=== PATIENT | female | born 1940 | race Caucasian/White ===

== ENCOUNTER → 2024-06-09 13:59 | Outpatient (REF) | payer OTHER, SELFPAY ==
[2024-06-09 14:56] LABS: Urine Albumin Negative (Neg - Trace); Urine Bilirubin Negative (Negative); Urine Character Clear (Clear); Urine Color Yellow; Urine Glucose Negative (Negative); Urine Ketone Negative (Negative); Urine Leukocyte Negative (Negative); Urine Nitrite Negative (Negative); Urine Occult Blood Negative (Negative); Urine Specific Gravity 1.005 (<1.030); Urine Urobilinogen Negative (Neg - 1+)
== END ==
LOC: REG 13:59
PROVIDERS: ATTENDING PHYSICIAN Physician Assistant; FAMILY PHYSICIAN Family Medicine
DX: N30.20 Other chronic cystitis without hematuria (principal)
CPT/HCPCS: 81003; 87086

== ENCOUNTER 2024-06-26 15:00 | Inpatient (IN) | payer OTHER, SELFPAY ==
[2024-06-05 11:25] LABS: Hematocrit 42.2 % (37.0-47.0); Hemoglobin 13.4 g/dL (12.0-16.0); Mean Corp Hgb Conc. 31.8 g/dL (33.0-37.0); Mean Corpuscular Hgb 28.9 pg (27.0-31.0); Mean Corpuscular Volume 90.9 fL (81.0-99.0); Platelet Count 271 10^3/uL (130-400); Red Blood Cell Count 4.64 10^6/uL (4.20-5.40); Red Cell Dist. Width 12.7 % (11.5-14.5); White Blood Cell Count 7.8 10^3/uL (4.8-10.8)
[2024-06-05 11:25] LABS: Urine Albumin Negative (Neg - Trace); Urine Bilirubin Negative (Negative); Urine Character Clear (Clear); Urine Color Yellow; Urine Glucose Negative (Negative); Urine Ketone Negative (Negative); Urine Leukocyte 2+ (Negative); Urine Nitrite Negative (Negative); Urine Occult Blood Negative (Negative); Urine Urobilinogen Negative (Neg - 1+)
[2024-06-05 11:41] LABS: Urine Bacteria Few (Negative); Urine Red Blood Cell 0-2 /HPF (0-2)
[2024-06-05 13:40] LABS: Glycohemoglobin (HgbA1c) 6.1 % (4.0-5.6)
[2024-06-05 13:51] LABS: ALT (SGPT) 20 U/L (0-35); AST (SGOT) 25 U/L (14-36); Albumin 4.7 g/dl (3.5-5.0); Alkaline Phosphatase 58 U/L (38-126); Blood Urea Nitrogen 19 mg/dl (7-17); Calcium 9.8 mg/dl (8.4-10.2); Carbon Dioxide 27 mmol/L (22-30); Chloride 106 mmol/L (98-107); Glucose 88 mg/dl (70-99); Potassium 4.5 mmol/L (3.5-5.1); Sodium 144 mmol/L (135-145); Total Bilirubin 1.2 mg/dl (0.2-1.3); eGFR > 60.00
[2024-06-05 14:20] VITALS: BMI 28.3
[2024-06-13 12:02] VITALS: BMI 28.3
--- NOTE | 2024-06-22 11:26 | VNURNOTE ---
Chart reviewed, noted pt scheduled for SDS/PSR. Per HP, pt to start outpt PT Weds after surgery. Noted per video software engineer, Pepper Montoya, no VN needs.
[2024-06-26] VITALS (16 sets, daily range): BP systolic 104–142; BP diastolic 65–88; PULSE 81; O2SAT 95
--- NOTE | 2024-06-26 07:09 | W.DS.TRANS ---
Addendum entered and electronically signed by Sania Mcfarland PA-C 06/27/24 08:00:
Cefadroxil ppx 500mg bid w/probiotic Rx provied for infection prevention given hx Urosepss
Original Note:
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
-
Discharge Instructions:
Discharge Diagnosis/Procedures L TKA 06/26/24
Diet Low Sodium
Activity With Walker
Driving Restrictions No driving
Bathing Restrictions OK to Shower
Other Services PT
Instructions:
Stand-Alone Forms: Total Hip/Knee Replacement D/C
Changes to Home Medications: Yes
Discharge Medications:
DC Medications w/original date entered in [employer]
amlodipine 5 mg tablet 2.5 mg PO QPM 01/21/17
diphenhydramine HCl 25 mg capsule (Banophen) 50 mg PO HS insomnia 01/21/17
irbesartan 150 mg tablet 150 mg PO HS 01/21/17
methenamine hippurate 1 gram tablet 1 g PO BID 01/21/17
atorvastatin 10 mg tablet 10 mg PO QPM 06/02/24
bupropion HCl 150 mg tablet,12 hr sustained-release (Wellbutrin SR) 150 mg PO DAILY 06/02/24
denosumab 60 mg/mL subcutaneous syringe (Prolia) 60 mg SC [id number] 06/02/24
desmopressin 0.1 mg tablet (DDAVP) 0.05 mg PO BID 06/02/24
esomeprazole magnesium 40 mg capsule,delayed release (Nexium) 40 mg PO DAILY 06/02/24
estradiol 0.01% (0.1 mg/gram) vaginal cream 1 g vaginal DIRECTED 06/02/24
melatonin 5 mg capsule 5 mg PO HS 06/02/24
triamcinolone acetonide 0.1 % topical cream 1 applic topical PRN PRN ITCHING 06/02/24
mupirocin 2 % topical ointment 1 applic intranasal BID #1 tube 06/05/24
acetaminophen 325 mg tablet (Tylenol) 650 mg (2 x 325 mg) PO QID #1 tab 06/26/24
aspirin 325 mg tablet 325 mg PO DAILY blood clot prevention #1 tab 06/26/24
celecoxib 200 mg capsule 200 mg PO DAILY Anti-inflammatory #14 caps 06/26/24
docusate sodium 100 mg capsule (Colace) 100 mg PO BID stool softner #1 cap 06/26/24
gabapentin 300 mg capsule 300 mg PO HS sleep/pain #10 caps 06/26/24
magnesium hydroxide 400 mg/5 mL oral suspension (Milk of Magnesia) 30 ml PO HS PRN Constipation #1 mL 06/26/24
ondansetron 4 mg disintegrating tablet 4 mg PO Q6H PRN n/v #20 tabs 06/26/24
oxycodone 5 mg tablet 5 mg PO Q6H PRN 1 tab moderate pain, 2 tabs severe pain #30 tabs 06/26/24
sennosides 8.6 mg tablet (Senokot) 17.2 mg (2 x 8.6 mg) PO BID laxative #2 tabs 06/26/24
Home Medication Changes
mupirocin 2 % topical ointment 1 applic intranasal BID #1 tube 06/05/24
acetaminophen 325 mg tablet (Tylenol) 650 mg (2 x 325 mg) PO QID #1 tab 06/26/24
aspirin 325 mg tablet 325 mg PO DAILY blood clot prevention #1 tab 06/26/24
celecoxib 200 mg capsule 200 mg PO DAILY Anti-inflammatory #14 caps 06/26/24
docusate sodium 100 mg capsule (Colace) 100 mg PO BID stool softner #1 cap 06/26/24
gabapentin 300 mg capsule 300 mg PO HS sleep/pain #10 caps 06/26/24
magnesium hydroxide 400 mg/5 mL oral suspension (Milk of Magnesia) 30 ml PO HS PRN Constipation #1 mL 06/26/24
ondansetron 4 mg disintegrating tablet 4 mg PO Q6H PRN n/v #20 tabs 06/26/24
oxycodone 5 mg tablet 5 mg PO Q6H PRN 1 tab moderate pain, 2 tabs severe pain #30 tabs 04/14/25
sennosides 8.6 mg tablet (Senokot) 17.2 mg (2 x 8.6 mg) PO BID laxative #2 tabs 06/26/24
Pending Results: No
[2024-06-26] MEDS: D5/0.45%NACL 1000 IV ×2 (07:10→13:44)
[2024-06-26] MEDS: CELEBREX 200 MG PO (07:10)
[2024-06-26] MEDS: TYLENOL 650 MG PO ×5 (07:10→22:59)
[2024-06-26 08:03] LABS: Sodium 137 mmol/L (135-145)
--- NOTE | 2024-06-26 08:24 | W.PN.UPDATE ---
Update Note
Progress Note Update
L TKA 06/26/24
DVT ppx ASA
Hx p/o hypotension
Diabetes insipidus
-low salt/protein
-D5 1/2 NSS IVF
-Midodrine
-no Toradol
[2024-06-26 10:21] LABS: Glucose - Point of Care 161 mg/dl (70-99)
[2024-06-26 11:36] LABS: Sodium 135 mmol/L (135-145)
[2024-06-26] MEDS: DILAUDID 0.25 MG IV ×3 (12:17→13:47)
[2024-06-26] MEDS: ROXICODONE 5 MG PO ×3 (13:23→22:59)
--- NOTE | 2024-06-26 14:50 | PTCARENOTE ---
Received patient from PACU around 1430 via bed in stable condition. Left knee dressing CDI. + movement + sensation to LLE. Patient oriented to room. Call cooney in reach.
[2024-06-26] MEDS: DDAVP PO (15:12)
[2024-06-26] MEDS: WELLBUTRIN SR (12 hour sustained release) 150 MG PO (15:16)
[2024-06-26] MEDS: PROTONIX 40 MG PO (15:16)
[2024-06-26] MEDS: ANCEF 5 IV ×2 (15:17→23:00)
[2024-06-26] MEDS: ProAmatine PO (15:22)
[2024-06-26] MEDS: DDAVP 0.05 MG PO (17:17)
[2024-06-26] MEDS: ASPIRIN 325 MG PO (17:17)
[2024-06-26] MEDS: ProAmatine 5 MG PO (17:19)
[2024-06-26] MEDS: LIPITOR 10 MG PO (17:19)
[2024-06-26 18:03] LABS: Sodium 130 mmol/L (135-145)
--- NOTE | 2024-06-26 18:54 | W.PN.UPDATE ---
Update Note
Progress Note Update
This patient has diabetes insipidus managed by Dr. Zahira Sykes at of the [facility]. She saw the patient preoperatively and I just spoke with her regarding postoperative management. This patient's sodium was 137 at 7 AM today,
135 at 11 AM today and 130 at 6 PM today. Based upon these findings and my discussion with Dr. Sykes we are stopping IVF and restricting her free water for the rest of the day. She is then to restrict her water to 800 mL on June 27. In the
morning, at 6 AM, she will undergo a laboratory draw which includes electrolytes and urine osmolality. The results of these tests are to be discussed with Dr. Sykes by cell phone. Also, patient is to be put on a 4-hour neurochecks. If there is
any change in mental status, a stat sodium is to be drawn. Tomorrow's desmopressin dose should be administered at 11:00 and 23:00.
[2024-06-26] MEDS: SENOKOT 17.2 MG PO (20:17)
[2024-06-26] MEDS: BACTROBAN 2% OINTMENT 1 APPLIC NASAL (20:18)
[2024-06-26] MEDS: COLACE 100 MG PO (20:18)
[2024-06-26] MEDS: NEURONTIN PO ×2 (22:18→22:22)
[2024-06-26] MEDS: MELATONIN 5 MG PO (22:18)
[2024-06-26] MEDS: BENADRYL PO (22:22)
[2024-06-27] VITALS (9 sets, daily range): BP systolic 102–140; BP diastolic 56–75; PULSE 65–79; O2SAT 95–96
[2024-06-27] MEDS: TYLENOL PO (05:00)
[2024-06-27] MEDS: ROXICODONE 5 MG PO ×3 (05:35→17:24)
--- NOTE | 2024-06-27 07:43 | CM ---
Addendum entered by Porsha Corrales RN 06/27/24 08:43:
CM met with patient in room. Patient confirmed demographics. Patient does not have a history of VN, SNF. Patient is active with PCP. Patient uses [facility] for medication services. Patient is scheduled for outpatient PT with [facility] and is scheduled
for 06/28.
Plan: Home with Outpatient PT services.
Original Note:
Cm reviewed medical records. CM reviewed PT notes and recommendation for outpatient PT. CM will continue to follow as needed.
[2024-06-27] MEDS: WELLBUTRIN SR (12 hour sustained release) 150 MG PO (08:04)
[2024-06-27] MEDS: PROTONIX 40 MG PO (08:04)
[2024-06-27] MEDS: SENOKOT 17.2 MG PO ×2 (08:04→19:52)
[2024-06-27] MEDS: ProAmatine 5 MG PO ×3 (08:04→17:21)
[2024-06-27] MEDS: HIPREX 1 GRAM PO ×2 (08:05→13:28)
[2024-06-27] MEDS: TYLENOL 650 MG PO ×5 (08:05→22:59)
[2024-06-27] MEDS: ASPIRIN 325 MG PO (08:05)
[2024-06-27] MEDS: COLACE 100 MG PO ×2 (08:05→19:52)
[2024-06-27] MEDS: BACTROBAN 2% OINTMENT 1 APPLIC NASAL ×2 (08:06→19:54)
[2024-06-27 08:10] LABS: Blood Urea Nitrogen 16 mg/dl (7-17); Calcium 8.5 mg/dl (8.4-10.2); Carbon Dioxide 22 mmol/L (22-30); Chloride 98 mmol/L (98-107); Estimated Creatinine Clearance 53 ml/min; Glucose 129 mg/dl (70-99); Potassium 4.9 mmol/L (3.5-5.1); Sodium 130 mmol/L (135-145); eGFR > 60.00
[2024-06-27] MEDS: ZOFRAN 4 MG IV ×2 (09:09→16:25)
--- NOTE | 2024-06-27 10:26 | W.PN.ORTHO ---
Today's Communication / Plan
-
d/c only when stable
Assessment
.
Distal Motor Intact: Yes
Dressing:
Clean, dry and intact.
Assessment:
Hx p/o hypotension-Midodrine w/ parameter-BP stable
Diabetes insipidus
-low salt/protein
-D5 1/2 NSS IVF-d/c following OR
-Toradol held
-fluid restriction
-Ddavp 2 hours from home dosing after void
-awaiting urine osmolality
-no indication of symptomatic hyponatremia thus far
Urinary retention post-op requiring straight cath 600ml PVR-will avoid additional straight cath if possible due to risk of infection and hx of urosepsis-PVR 100 this am, has yet to void-awaiting urine studies
Plan
.
Surgery / Date: L TKA 06/26/24
DVT Prophylaxis: Aspirin
Activity:
Out of bed.
PT/OT
Discharge Plan: Home
Subjective
.
.:
Patient resting comfortably.
Vital Signs and Labs
.
Vital Signs and Labs:
Lab Results
06/05/24 10:20
Temp Pulse Resp BP Pulse Ox
98.0 F 73 16 110/67 94
06/27/24 06:58 06/27/24 08:04 06/27/24 06:58 06/27/24 08:04 06/27/24 06:58
Non-invasive Hgb result: 11.6
Physical Exam
-
HEENT: No pallor, cyanosis, or jaundice. Throat clear.
NECK: Supple. No JVD.
RESPIRATORY: Lungs clear to auscultation.
CVS: S1, S2 normal. RRR.� No murmur, rub or gallop.
ABDOMEN: Soft, non-tender. No distension. BS+/normal.
EXTREMITIES: strength equal, no calf pain with palpation
SBA UNDERWRITER: AOx3. No focal deficits. geospatial technologist grossly intact
[2024-06-27 13:06] LABS: Sodium 129 mmol/L (135-145)
--- NOTE | 2024-06-27 13:27 | W.PN.UPDATE ---
Update Note
Progress Note Update
repeat sodium 129-spoke to bottling room worker Dr. Zahira Sykes. Once patient can urinate, sodium will correct, and she may have Ddavp--we will repeat sodium prior to d/c and BMP slip provided for outpatient lab
[2024-06-27] MEDS: CELEBREX 200 MG PO (14:21)
[2024-06-27] MEDS: NEURONTIN 300 MG PO ×2 (14:21→22:56)
[2024-06-27 15:21] LABS: Osmolality Urine 628 mOsm/kg (300-900)
[2024-06-27 15:31] LABS: Urine Sodium 11 mmol/L (30-90)
[2024-06-27] MEDS: FLOMAX 0.4 MG PO (16:15)
[2024-06-27] MEDS: LIPITOR 10 MG PO (17:24)
[2024-06-27 18:34] LABS: Sodium 127 mmol/L (135-145)
--- NOTE | 2024-06-27 19:28 | W.PN.UPDATE ---
Update Note
Progress Note Update
spoke to Dr. Sykes Endorinologist [facility] re Diabetes Insipidus:
Patient is now hyponatremic with element of hypovolemia based on urine sodium, osmolality and output
500ml NSS bolus over 1 hour
Encourage oral intake but continue 1L fluid restriction
Ddavp NOT TO BE DOSED BASED ON SODIUM LEVEL EVEN IF NORMALIZES--unless---
Classic indicator of exacerbation will be extreme thirst--when this occurs,AND patient voids 500ml within 2hours,Ddavp may be dosed--irregardless of sodium level.
[2024-06-27] MEDS: NSS 250 IV (19:53)
[2024-06-27] MEDS: DDAVP PO (19:55)
[2024-06-27] MEDS: MELATONIN 5 MG PO (22:56)
[2024-06-27] MEDS: BENADRYL 50 MG PO (22:56)
--- NOTE | 2024-06-27 23:20 | PTCARENOTE ---
Patient urinated 275 in past two hours. VALERIE Arambula made aware. No new orders at this time.
[2024-06-28] MEDS: ROXICODONE 5 MG PO ×2 (00:40→08:17)
[2024-06-28] MEDS: TYLENOL PO (04:49)
[2024-06-28 07:10] VITALS: BP 106/67
[2024-06-28 07:32] LABS: Blood Urea Nitrogen 17 mg/dl (7-17); Chloride 98 mmol/L (98-107); Potassium 4.5 mmol/L (3.5-5.1); Sodium 131 mmol/L (135-145)
[2024-06-28 07:48] LABS: Carbon Dioxide 23 mmol/L (22-30); Estimated Creatinine Clearance 47 ml/min; Glucose 103 mg/dl (70-99); eGFR > 60.00
[2024-06-28] MEDS: CELEBREX 200 MG PO (08:17)
[2024-06-28] MEDS: HIPREX 1 GRAM PO ×2 (08:18→12:20)
[2024-06-28] MEDS: WELLBUTRIN SR (12 hour sustained release) 150 MG PO (08:18)
[2024-06-28] MEDS: SENOKOT 17.2 MG PO (08:18)
[2024-06-28] MEDS: PROTONIX 40 MG PO (08:18)
[2024-06-28] MEDS: ASPIRIN 325 MG PO (08:19)
[2024-06-28] MEDS: ProAmatine 5 MG PO (08:19)
[2024-06-28] MEDS: TYLENOL 650 MG PO ×2 (08:19→12:20)
[2024-06-28] MEDS: COLACE 100 MG PO (08:19)
[2024-06-28] MEDS: FLOMAX 0.4 MG PO (08:19)
[2024-06-28] MEDS: ProAmatine PO (08:21)
--- NOTE | 2024-06-28 08:23 | CM ---
CM reviewed medical records. CM pending medical clearance for discharge. CM will continue to follow.
PLAN: Home with Outpatient PT.
--- NOTE | 2024-06-28 10:45 | W.PN.ORTHO ---
Today's Communication / Plan
-
d/c
Assessment
.
Distal Motor Intact: Yes
Dressing:
Clean, dry and intact.
Assessment:
spoke to Dr. Sykes Endorinologist [facility] Diabetes Insipidus:
*Patient became hyponatremic with element of hypovolemia based on urine sodium, osmolality and output
s/p 500ml NSS bolus over 1 hour 06/27/24
*1L fluid restriction continued
*Ddavp held despite sodium level due to criteria:
classic indicator of exacerbation- extreme thirst--and patient able to void 500ml within 2hours
-Today POD#2-patient voiding >500ml over 2 hours and has some thirst-Na+ level improved at 131--OK to dose Desmopressin per Endocrine-BMP in am outpatient
Hypotension-Midodrine dosed-no orthostasis
Urinary retention-resolved with Flomax
Plan
.
Surgery / Date: L TKA 06/26/24
DVT Prophylaxis: Aspirin
Activity:
Out of bed.
PT/OT
Discharge Plan: Home w/ Outpatient PT
Subjective
.
.:
Patient resting comfortably.
Vital Signs and Labs
.
Vital Signs and Labs:
Lab Results
06/05/24 10:20
06/28/24 05:30
Temp Pulse Resp BP Pulse Ox
97.5 F 75 16 106/67 97
06/28/24 07:10 06/28/24 07:10 06/28/24 07:10 06/28/24 08:19 06/28/24 07:10
Non-invasive Hgb result: 10.6
Physical Exam
-
HEENT: No pallor, cyanosis, or jaundice. Throat clear.
NECK: Supple. No JVD.
RESPIRATORY: Lungs clear to auscultation.
CVS: S1, S2 normal. RRR.� No murmur, rub or gallop.
ABDOMEN: Soft, non-tender. No distension. BS+/normal.
EXTREMITIES: strength equal, no calf pain with palpation
NEWSPAPER EDITOR MANAGING: AOx3. No focal deficits. senior fire protection engineer grossly intact
[2024-06-28] MEDS: DDAVP 0.05 MG PO (10:46)
[2024-06-28 12:20] VITALS: BP 108/79
--- NOTE | 2024-06-29 12:33 | W.DS.TRANS ---
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
-
Discharge Instructions:
Discharge Diagnosis/Procedures L TKA 06/26/24
Diet Low Sodium,Restrict fluids to 48 oz
Activity With Walker
Driving Restrictions No driving
Bathing Restrictions OK to Shower
Blood Work BMP
Other Services PT
Instructions:
Stand-Alone Forms: Total Hip/Knee Replacement D/C
Changes to Home Medications: Yes
Discharge Medications:
DC Medications w/original date entered in [employer]
amlodipine 5 mg tablet 2.5 mg PO QPM 01/21/17
diphenhydramine HCl 25 mg capsule (Banophen) 50 mg PO HS insomnia 01/21/17
irbesartan 150 mg tablet 150 mg PO HS 01/21/17
methenamine hippurate 1 gram tablet 1 g PO BID 01/21/17
atorvastatin 10 mg tablet 10 mg PO QPM 06/02/24
bupropion HCl 150 mg tablet,12 hr sustained-release (Wellbutrin SR) 150 mg PO DAILY 06/02/24
denosumab 60 mg/mL subcutaneous syringe (Prolia) 60 mg SC [id number] 06/02/24
desmopressin 0.1 mg tablet (DDAVP) 0.05 mg PO BID 06/02/24
esomeprazole magnesium 40 mg capsule,delayed release (Nexium) 40 mg PO DAILY 06/02/24
estradiol 0.01% (0.1 mg/gram) vaginal cream 1 g vaginal DIRECTED 06/02/24
melatonin 5 mg capsule 5 mg PO HS 06/02/24
triamcinolone acetonide 0.1 % topical cream 1 applic topical PRN PRN ITCHING 06/02/24
mupirocin 2 % topical ointment 1 applic intranasal BID #1 tube 06/05/24
acetaminophen 325 mg tablet (Tylenol) 650 mg (2 x 325 mg) PO QID #1 tab 06/26/24
aspirin 325 mg tablet 325 mg PO DAILY blood clot prevention #1 tab 06/26/24
celecoxib 200 mg capsule 200 mg PO DAILY Anti-inflammatory #14 caps 06/26/24
docusate sodium 100 mg capsule (Colace) 100 mg PO BID stool softner #1 cap 06/26/24
gabapentin 300 mg capsule 300 mg PO HS sleep/pain #10 caps 06/26/24
magnesium hydroxide 400 mg/5 mL oral suspension (Milk of Magnesia) 30 ml PO HS PRN Constipation #1 mL 06/26/24
ondansetron 4 mg disintegrating tablet 4 mg PO Q6H PRN n/v #20 tabs 06/26/24
oxycodone 5 mg tablet 5 mg PO Q6H PRN 1 tab moderate pain, 2 tabs severe pain #30 tabs 06/26/24
sennosides 8.6 mg tablet (Senokot) 17.2 mg (2 x 8.6 mg) PO BID laxative #2 tabs 06/26/24
Saccharomyces boulardii 250 mg capsule (Florastor) 250 mg PO BID #1 cap 06/27/24
cefadroxil 500 mg capsule 500 mg PO BID infection prevention #14 caps 06/27/24
dexamethasone 4 mg tablet 4 mg PO BID inflammation #6 tabs 06/27/24
Home Medication Changes
mupirocin 2 % topical ointment 1 applic intranasal BID #1 tube 06/05/24
acetaminophen 325 mg tablet (Tylenol) 650 mg (2 x 325 mg) PO QID #1 tab 06/26/24
aspirin 325 mg tablet 325 mg PO DAILY blood clot prevention #1 tab 06/26/24
celecoxib 200 mg capsule 200 mg PO DAILY Anti-inflammatory #14 caps 06/26/24
docusate sodium 100 mg capsule (Colace) 100 mg PO BID stool softner #1 cap 06/26/24
gabapentin 300 mg capsule 300 mg PO HS sleep/pain #10 caps 06/26/24
magnesium hydroxide 400 mg/5 mL oral suspension (Milk of Magnesia) 30 ml PO HS PRN Constipation #1 mL 06/26/24
ondansetron 4 mg disintegrating tablet 4 mg PO Q6H PRN n/v #20 tabs 06/26/24
oxycodone 5 mg tablet 5 mg PO Q6H PRN 1 tab moderate pain, 2 tabs severe pain #30 tabs 06/26/24
sennosides 8.6 mg tablet (Senokot) 17.2 mg (2 x 8.6 mg) PO BID laxative #2 tabs 06/26/24
Saccharomyces boulardii 250 mg capsule (Florastor) 250 mg PO BID #1 cap 06/27/24
cefadroxil 500 mg capsule 500 mg PO BID infection prevention #14 caps 06/27/24
dexamethasone 4 mg tablet 4 mg PO BID inflammation #6 tabs 06/27/24
Pending Results: No
== END 2024-06-28 13:40 | disposition home or self-care (01) | DRG 470 ==
LOC: 2 SOUTH 15:00
PROVIDERS: Anesthesiology; Physician Assistant; Physician Assistant Medical; Student in an Organized Health Care Education/Training Program; ADMITTING PHYSICIAN Specialist; FAMILY PHYSICIAN Family Medicine; REFERRING PHYSICIAN Internal Medicine Cardiovascular Disease
PROC: 0SRD0J9 Replacement of Left Knee Joint with Synthetic Substitute, Cemented, Open Approach (ICD-10-PCS; 2024-06-26)
DX: M17.12 Unilateral primary osteoarthritis, left knee (principal); E23.2 Diabetes insipidus; I95.9 Hypotension, unspecified; F32.A Depression, unspecified; F41.0 Panic disorder [episodic paroxysmal anxiety]
CPT/HCPCS: 36415; 73560; 80048; 80053; 81003; 81015; 82962; 83036; 83935; 84295; 84300; 85027; 87070; 87086; 97110; 97116; 97162; 97166; 97530; 97535; C1713; C1776

== ENCOUNTER → 2024-07-01 10:35 | Outpatient (REF) | payer OTHER, SELFPAY ==
[2024-07-01 11:15] LABS: Hematocrit 26.7 % (37.0-47.0); Hemoglobin 9.2 g/dL (12.0-16.0); Mean Corp Hgb Conc. 34.5 g/dL (33.0-37.0); Mean Corpuscular Hgb 29.9 pg (27.0-31.0); Mean Corpuscular Volume 86.7 fL (81.0-99.0); Mean Platelet Volume 10.5 fL (7.4-10.4); Platelet Count 317 10^3/uL (130-400); Red Blood Cell Count 3.08 10^6/uL (4.20-5.40); Red Cell Dist. Width 13.1 % (11.5-14.5); White Blood Cell Count 17.7 10^3/uL (4.8-10.8)
[2024-07-01 11:55] LABS: Blood Urea Nitrogen 28 mg/dl (7-17); Carbon Dioxide 23 mmol/L (22-30); Chloride 99 mmol/L (98-107); Glucose 131 mg/dl (70-99); Potassium 5.2 mmol/L (3.5-5.1); Sodium 133 mmol/L (135-145); eGFR > 60.00
[2024-07-01 12:22] LABS: % Basophils 0.1 % (0-2); % Immature Granulocytes 0.7 % (0-0.5); % Lymphocytes 11.3 % (20.5-51.1); % Neutrophils 78.9 % (42.2-75.2); Absolute Immature Granulocytes 0.1 10^3/uL (0-0.05); Absolute Monocytes 1.6 10^3/uL (0.1-0.6); Absolute Neutrophils 13.9 10^3/uL (1.4-6.5); Nucleated Red Blood Cells % 0.1 %
[2024-07-01 13:15] LABS: Erythrocyte Sed Rate 24 mm/hour (0-20)
== END ==
LOC: REG 10:35
PROVIDERS: ATTENDING PHYSICIAN Specialist; FAMILY PHYSICIAN Family Medicine; OTHER PHYSICIAN Internal Medicine Endocrinology, Diabetes & Metabolism; REFERRING PHYSICIAN Physician Assistant Medical
DX: E23.2 Diabetes insipidus (principal); E87.1 Hypo-osmolality and hyponatremia; Z96.651 Presence of right artificial knee joint
CPT/HCPCS: 36415; 80048; 85025; 85652

== ENCOUNTER → 2024-07-06 13:42 | Outpatient (REF) | payer OTHER, SELFPAY ==
[2024-07-06 14:30] LABS: Blood Urea Nitrogen 13 mg/dl (7-17); Calcium 8.5 mg/dl (8.4-10.2); Carbon Dioxide 25 mmol/L (22-30); Chloride 101 mmol/L (98-107); Glucose 99 mg/dl (70-99); Sodium 133 mmol/L (135-145); eGFR > 60.00
== END ==
LOC: REG 13:42
PROVIDERS: ATTENDING PHYSICIAN Physician Assistant Medical; FAMILY PHYSICIAN Family Medicine; OTHER PHYSICIAN Internal Medicine Endocrinology, Diabetes & Metabolism; REFERRING PHYSICIAN Specialist
DX: E23.2 Diabetes insipidus (principal); E87.1 Hypo-osmolality and hyponatremia
CPT/HCPCS: 36415; 80048

== ENCOUNTER → 2024-09-29 14:25 | Outpatient (REF) | payer OTHER, SELFPAY | LOC: PAVMRI 14:25 | PROVIDERS: ATTENDING PHYSICIAN Physician Assistant; FAMILY PHYSICIAN Family Medicine | DX: M54.16 Radiculopathy, lumbar region (principal) | CPT/HCPCS: 72148 ==